=== PATIENT | female | born 1990 | race Asian ===

== ENCOUNTER 2022-08-09 20:33 | Inpatient (IN) ==
[2022-08-09] MEDS ORDERED: LACTATED RINGER'S 1,000 ML IV PRN (20:55)
[2022-08-09] MEDS ORDERED: OXYTOCIN 30 UNITS/500 ML BAG IV PRN (20:55)
[2022-08-09] MEDS ORDERED: LIDOCAINE 1% LOCAL 20 ML VIAL INFIL PRN (20:55)
[2022-08-09] MEDS ORDERED: ePHEDrine sulfate 50 MG/ML AMP ONE (21:31)
[2022-08-09] MEDS ORDERED: fentaNYL citrate PF 100 MCG/2 ML VIAL ONE (21:31)
[2022-08-09] MEDS ORDERED: LIDOCAINE 2%/EPINEPHRINE 1:200,000 20 ML PF ONE (21:32)
[2022-08-09] MEDS ORDERED: fentaNYL 2MCG/ML ROPIVACAINE 1.25MG/ML 100 ML BAG EPI ONE (21:32)
[2022-08-09] MEDS ORDERED: SODIUM CHLORIDE 0.9% PF INJ 10 ML VIAL ONE (21:32)
[2022-08-09] MEDS ORDERED: BUPIVACAINE 0.25% PF 30 ML VIAL ONE (21:32)
--- NOTE | 2022-08-09 21:41 | Anesthesiology Consultation ---
Date of Service August 09, 2022 Assessment & Plan (1) Encounter for pre-operative examination: Chart Review Chart Review: Acceptable Risk for Labor Epidural History Height/Weight Height: 5 ft 4 in Weight: 87.09 kg Allergies Allergy/AdvReac Type Severity Reaction Status Date / Time No Known Allergies Allergy Verified 08/05/22 11:37 Medications Home Medications Medication Instructions Recorded Confirmed Last Taken prenat.vits,july,zxa-pvyy-ejbyj 1 tab PO DAILY 04/24/21 08/09/22 08/06/22 Active Medications Generic Name Dose Route Start Last Admin Trade Name Freq PRN Reason Stop Dose Admin Lactated Ringer's 1,000 mls @ 125 mls/hr 08/09/22 20:55 08/09/22 21:22 Lr IV 08/11/22 20:54 999 mls/hr .Q8H PRN Administration L&D Protocol Protocol Past Medical History Medical History (Updated 08/09/22 @ 21:44 by Christiano Garcia MD) No significant medical problems Past Family History Family History Grandmother (Paternal) Diabetes Other Alzheimer disease Past Surgical History Surgical History (Updated 08/09/22 @ 21:43 by Christiano Garcia MD) No significant past surgical history Social History Smoking Status: Never smoker Hx Alcohol Use: No Hx Substance Use: No Physical Exam Vital Signs Last Vital Signs Temp 36.3 C L 08/09/22 20:43 Pulse 78 08/09/22 20:39 Resp 18 08/09/22 20:43 BP 129/66 08/09/22 20:39
[2022-08-09 21:54] LABS: Hematocrit (blood only) 40.2 % (37.0-47.0); Hemoglobin 13.7 g/dl (12.0-16.0); Mean Corpuscular Hemoglobin 30.1 pg (25.0-34.0); Mean Corpuscular Hgb Conc 34.1 g/dL (32.0-36.0); Mean Corpuscular Volume 88.4 fL (80.0-100.0); Platelet Count 310 K/uL (130-400); RDW Standard Deviation 42.4 fL (36.4-46.3); Red Blood Count 4.55 M/uL (4.20-5.40); White Blood Count 16.42 K/ul (4.8-10.8)
[2022-08-09] MEDS ORDERED: ONDANSETRON INJ 2 MG/ML 2 ML VIAL IV PRN (22:15)
[2022-08-09] MEDS ORDERED: fentaNYL 2MCG/ML ROPIVACAINE 1.25MG/ML 100 ML BAG EPI PRN (22:15)
[2022-08-09] MEDS ORDERED: NALOXONE HCL 1 MG in SODIUM CHLORIDE 0.9% 1000ML 1,000 ML IV PRN (22:15)
[2022-08-09] MEDS ORDERED: NALOXONE HCL 0.4 MG/1 ML VIAL/CARP IV PRN (22:15)
[2022-08-09] MEDS ORDERED: ePHEDrine sulfate 50 MG/ML AMP IV PRN (22:15)
[2022-08-10] MEDS ORDERED: BENZOCAINE 20% AER SPR 82.5 GM CAN EXT PRN (00:07)
[2022-08-10] MEDS ORDERED: DIPHTHERIA/TETANUS/PERTUSSIS 0.5mL SYR/VIAL (Age 7+yrs) IM ONE (00:07)
[2022-08-10] MEDS ORDERED: OXYTOCIN 30 UNITS/500 ML BAG IV PRN (00:07)
[2022-08-10] MEDS ORDERED: ACETAMINOPHEN 325 MG TAB PO PRN (00:07)
[2022-08-10] MEDS ORDERED: HYDROCORTISONE ACETATE 25 MG SUPP PR PRN (00:07)
--- NOTE | 2022-08-10 03:49 | Anesthesia Procedure Note ---
Date of Service August 10, 2022 Anesthesia Post Epidural Note Vital Signs Vital Signs: Temp Pulse Resp BP Pulse Ox 36.6 C 71 18 90/46 L 92 08/10/22 02:40 08/10/22 02:40 08/10/22 02:40 08/10/22 02:40 08/10/22 00:05 Notes Mental Status: alert / awake / arousable and participated in evaluation Nausea / Vomiting: adequately controlled Pain: adequately controlled Airway Patency, RR, SpO2: stable & adequate BP & HR: stable & adequate Hydration State: stable & adequate Neuraxial Anesthesia: was administered and sensory block is resolving Anesthetic Complications: no major complications apparent Epidural: Removed without complications and With tip intact
--- NOTE | 2022-08-10 07:02 | Obstetrical Progress Note ---
Date of Service <Alysia DonnellyDO - Last Filed: 08/10/22 07:58> August 10, 2022 Assessment & Plan <Alysia DonnellyDO - Last Filed: 08/10/22 07:58> (1) Status post vaginal delivery: continue OOB, ambulation, diet as tolerated <Ruperto Stuart MD - Last Filed: 08/10/22 08:22> (1) Status post vaginal delivery: Subjective <Alysia DonnellyDO - Last Filed: 08/10/22 07:58> Imelda is a 31 y/o female who is now PPD # 1 following vaginal delivery at 39 5/7 weeks. Reports feeling well overall this morning. Mild abdominal cramping, pain well managed on analgesics. Voiding. Tolerating meals overnight and able to ambulate some. Some persistent lochia with some improvement this morning. Breast feeding. Review of Systems Denies fever, chills, sweats Denies shortness of breath, difficulty breathing, chest pain, palpitations, chest pressure. Denies breast pain. Denies dysuria. Denies headache or changes in vision. Physical Exam <Alysia DonnellyDO - Last Filed: 08/10/22 07:58> General: Alert, oriented. No acute distress. Cardiac: Regular rate and rhythm, no murmurs/rubs/gallops. Respiratory: Clear to auscultation bilaterally a/p, no wheezes/rales/rhonchi. No increased work of breathing. Symmetrical chest rise. No respiratory distress. Abdomen: Soft, nontender, nondistended. Uterus: Uterine fundus firm, palpable 2 cm below umbilicus. Lower Extremities: No lower extremity edema or swelling. Results & Data <Alysia DonnellyDO - Last Filed: 08/10/22 07:58> Vital Signs (Past 12 Hours) Vital Signs Temp Pulse Pulse Resp BP BP Pulse Ox 08/10/22 02:40 36.6 C 71 18 90/46 L 08/10/22 02:10 18 08/10/22 01:40 18 08/10/22 01:10 18 08/10/22 00:55 18 08/10/22 00:40 18 08/10/22 00:25 18 08/10/22 00:10 36.5 C 18 08/09/22 23:45 18 08/09/22 23:30 18 08/09/22 23:15 18 08/09/22 23:00 18 08/09/22 22:45 18 08/09/22 20:43 36.3 C L 18 08/10/22 02:11 66 118/58 L 08/10/22 01:56 71 121/59 L 08/10/22 01:41 80 114/59 L 08/10/22 01:26 62 116/56 L 08/10/22 01:11 61 114/61 08/10/22 00:56 61 110/56 L 08/10/22 00:41 67 115/54 L 08/10/22 00:26 71 118/57 L 08/10/22 00:10 80 131/59 L 08/10/22 00:04 87 96 08/10/22 00:05 84 92 08/09/22 23:59 96 08/09/22 23:59 85 08/09/22 23:54 99 08/09/22 23:54 108 H 08/09/22 23:52 92 08/09/22 23:52 102 H 08/09/22 23:49 99 08/09/22 23:49 81 08/09/22 23:47 92 08/09/22 23:47 127 H 08/09/22 23:44 100 08/09/22 23:44 96 H 08/09/22 23:45 88 08/09/22 23:45 136/73 08/09/22 23:39 99 08/09/22 23:39 98 H 08/09/22 23:38 83 L 08/09/22 23:38 108 H 08/09/22 23:34 99 08/09/22 23:34 113 H 08/09/22 23:32 90 08/09/22 23:32 87 08/09/22 23:29 99 08/09/22 23:29 87 08/09/22 23:29 87 08/09/22 23:29 126/64 08/09/22 23:27 91 08/09/22 23:27 92 H 08/09/22 23:24 100 08/09/22 23:24 92 H 08/09/22 23:19 100 08/09/22 23:19 86 08/09/22 23:14 100 08/09/22 23:14 84 08/09/22 23:13 69 08/09/22 23:13 117/68 08/09/22 23:09 100 08/09/22 23:09 83 08/09/22 23:04 100 08/09/22 23:04 89 08/09/22 22:59 99 08/09/22 22:59 81 08/09/22 22:58 69 08/09/22 22:58 115/67 08/09/22 22:54 100 08/09/22 22:54 88 08/09/22 22:49 100 08/09/22 22:49 95 H 08/09/22 22:44 100 08/09/22 22:44 85 08/09/22 22:44 113/66 08/09/22 22:39 100 08/09/22 22:39 93 H 08/09/22 22:34 100 08/09/22 22:34 82 08/09/22 22:15 18 08/09/22 22:15 18 08/09/22 22:20 18 08/09/22 22:20 18 08/09/22 22:25 18 08/09/22 22:25 18 08/09/22 22:30 18 08/09/22 22:30 18 08/09/22 22:10 18 08/09/22 22:10 18 08/09/22 22:30 18 08/09/22 22:30 36.5 C 18 08/09/22 22:29 100 08/09/22 22:29 83 08/09/22 22:28 95 H 08/09/22 22:28 117/68 08/09/22 22:26 96 H 08/09/22 22:26 108/60 08/09/22 22:24 98 08/09/22 22:24 88 08/09/22 22:24 88 08/09/22 22:24 107/60 08/09/22 22:22 81 08/09/22 22:22 107/59 L 08/09/22 22:19 99 08/09/22 22:19 89 08/09/22 22:20 90 08/09/22 22:20 105/60 08/09/22 22:18 88 08/09/22 22:18 108/61 08/09/22 22:15 77 08/09/22 22:15 111/59 L 08/09/22 22:14 99 08/09/22 22:14 77 08/09/22 22:14 108/58 L 08/09/22 22:12 82 08/09/22 22:12 106/58 L 08/09/22 22:10 86 08/09/22 22:10 101/56 L 08/09/22 22:09 98 08/09/22 22:09 84 08/09/22 22:08 78 08/09/22 22:08 101/56 L 08/09/22 22:06 71 08/09/22 22:06 105/55 L 08/09/22 22:04 97 08/09/22 22:04 83 08/09/22 22:04 111/63 08/09/22 21:59 100 08/09/22 21:59 73 08/09/22 21:54 100 08/09/22 21:54 79 08/09/22 20:39 78 129/66 <Ruperto Stuart MD - Last Filed: 08/10/22 08:22> Co-Signing Physician Notes patient seen and evaluated with resident and agree with the above findings and plan. Routine care. Resident Activity Tracking <Alysia Donnelly DO - Last Filed: 08/10/22 07:58> Resident Involvement: Resident Care Provided Care Provided: OB Delivery (post )
[2022-08-10] MEDS: IBUPROFEN 600 MG TAB PO PRN ×3 (07:14→20:40)
[2022-08-10] MEDS: FERROUS SULFATE 325 MG TAB PO SCH (08:02)
[2022-08-10] MEDS: PRENATAL VITAMIN 1 TAB PO SCH (08:02)
[2022-08-10] MEDS: DOCUSATE SODIUM 100 MG CAP PO SCH ×2 (08:02→20:40)
--- NOTE | 2022-08-11 06:10 | Obstetrical Progress Note ---
Date of Service <Alysia Donnelly - Last Filed: 08/11/22 07:13> August 11, 2022 Assessment & Plan <Alysia DonnellyDO - Last Filed: 08/11/22 07:13> (1) Status post vaginal delivery: continue OOB, ambulation, diet as tolerated - 6 week post f/u - Discharge instructions reviewed <Anastasia Oviedo MD, FACOG - Last Filed: 08/11/22 08:05> (1) Status post vaginal delivery: Subjective <Alysia DonnellyDO - Last Filed: 08/11/22 07:13> Imelda is a 31 y/o female who is now PPD # 2 following vaginal delivery at 39 5/7 weeks. Reports feeling well overall this morning. Mild abdominal cramping, pain well managed on analgesics. Voiding. Tolerating meals overnight and able to ambulate some. Some persistent lochia with some improvement this morning. Breast feeding. Review of Systems Denies fever, chills, sweats Denies shortness of breath, difficulty breathing, chest pain, palpitations, ch est pressure. Denies breast pain. Denies dysuria. Denies headache or changes in vision. Physical Exam <Alysia DonnellyDO - Last Filed: 08/11/22 07:13> General: Alert, oriented. No acute distress. Cardiac: Regular rate and rhythm, no murmurs/rubs/gallops. Respiratory: Clear to auscultation bilaterally a/p, no wheezes/rales/rhonchi. No increased work of breathing. Symmetrical chest rise. No respiratory distress. Abdomen: Soft, nontender, nondistended. Uterus: Uterine fundus firm, palpable 2 cm below umbilicus. Lower Extremities: No lower extremity edema or swelling. Results & Data <Alysia DonnellyDO - Last Filed: 08/11/22 07:13> Vital Signs (Past 12 Hours) Vital Signs Temp Pulse Resp BP 08/11/22 00:00 36.8 C 65 18 92/50 L 08/10/22 20:30 36.9 C 69 18 95/58 L <Anastasia Oviedo MD, FACOG - Last Filed: 08/11/22 08:05> Co-Signing Physician Notes Resident Physician Supervision Note: I was present with Dr. Donnelly during the history and exam. I discussed the case with the resident and agree with the findings and plan as documented in the note. Any exceptions or clarifications are listed here: stable doing well, ready for dc home, instructions reviewed. abd soft ff 2 down nt, nt calves. breast/rhpos/ri Documented By: Anastasia Oviedo MD, FACOG Resident Activity Tracking <Alysia Donnelly, DO - Last Filed: 08/11/22 07:13> Resident Involvement: Resident Care Provided Care Provided: OB Delivery (post )
[2022-08-11] MEDS: FERROUS SULFATE 325 MG TAB PO SCH (08:08)
[2022-08-11] MEDS: DOCUSATE SODIUM 100 MG CAP PO SCH (08:08)
[2022-08-11] MEDS: IBUPROFEN 600 MG TAB PO PRN (08:08)
[2022-08-11] MEDS: PRENATAL VITAMIN 1 TAB PO SCH (08:09)
[2022-08-11] MEDS ORDERED: bisacodyL 5 MG TABEC PO SCH (20:00)
[2022-08-12] MEDS ORDERED: bisacodyL 10 MG SUPP PR PRN
--- NOTE | 2022-08-20 13:26 | Delivery Summary ---
DATE OF SERVICE: 08/09/2022. PROCEDURE: Normal spontaneous vaginal delivery. SURGEON: Ruperto Stuart MD PREOPERATIVE DIAGNOSES: 1. Single intrauterine at 39+ weeks gestational age. 2. pyelectasis. POSTOPERATIVE DIAGNOSES: 1. Single intrauterine at 39+ weeks gestational age. 2. pyelectasis. 3. Status post procedure. ESTIMATED BLOOD LOSS: 200 mL. DRAINS: None. FLUIDS: Continuous lactated Ringer. URINE OUTPUT: Not measured. COMPLICATIONS: None. FINDINGS: Viable with weight pending and Apgars of 8 and 9 at one [facility] HOSPITAL COURSE: The patient presented in active labor, progressed quickly to complete-complete, +2 station, pushed over intact perineum over approximately 15 minutes to achieve delivery. DESCRIPTION OF PROCEDURE: The patient progressed to 10 cm dilated, 100% effaced, positive 2 station, pushed over intact perineum with epidural anesthesia and delivered a viable with weight and Apgars as noted above. Head of the delivered in CHRISTI position, restituted to left transverse. No nuchal cord was noted. Body and shoulders quickly followed. was noted to be vigorous u chai delivery and a 1-minute delayed cord clamping was initiated. Cord was then double clamped and cu t. remained on maternal abdomen. Cord blood was obtained. Attention was then turned to [place] of the placenta, which was delivered intact, 3-vessel cord, gentle cord traction. On inspectio n of the perineum, vagina, cervix, there were noted to be no lacerations. Sponge and instrument coun ts were correct at the completion of the case. Both mother and stable in the immediate post- delivery period. Job ID: [id number]
== END 2022-08-11 12:25 | disposition home or self-care (01) | DRG 807 ==
LOC: OPB 20:33 → 4S1 20:37 → 4E2 08-10 03:04